=== PATIENT | female | born 1975 | race Native Hawaiian/Other Pacific Islander ===

== ENCOUNTER 2021-04-28 15:59 | Emergency (ER) | payer OTHER ==
[~2021-04-28] VITALS: Ht 175.3 cm; Wt 61.2 kg
[2021-04-28 15:59] VITALS: TEMP 98.4
[2021-04-28 17:30] VITALS: BP 96/64
== END 2021-04-28 17:35 | disposition home or self-care (01) ==
LOC: ED 15:59
DX: T63.461A Toxic effect of venom of wasps, accidental (unintentional), initial encounter (principal); R22.41 Localized swelling, mass and lump, right lower limb; Y92.098 Other place in other non-institutional residence as the place of occurrence of the external cause
CPT/HCPCS: 99282

== ENCOUNTER 2022-12-14 18:13 | Emergency (ER) | payer BC ==
[~2022-12-14] VITALS: Ht 175.3 cm; Wt 61.2 kg
[2022-12-14 18:18] VITALS: TEMP 98.8
[2022-12-14 19:08] LABS: PLATELET COUNT 207 K/uL (152-353)
[2022-12-14 19:21] LABS: POTASSIUM 3.6 mmol/L (3.6-5.2)
[2022-12-14 21:50] VITALS: BP 143/86
== END 2022-12-14 21:50 | disposition home or self-care (01) ==
LOC: ED 18:13
PROVIDERS: Emergency Medicine Emergency Medical Services
DX: K80.20 Calculus of gallbladder without cholecystitis without obstruction (principal); N23 Unspecified renal colic; Z87.442 Personal history of urinary calculi
CPT/HCPCS: 36415; 80053; 81000; 81025; 85027; 96361; 96374; 99284; J1885; J2270; J2405; Q9963